=== PATIENT | female | born 1950 | race Caucasian/White ===

== ENCOUNTER 2022-07-25 05:48 | Observation (INO) | payer MEDICARE, OTHER ==
--- NOTE | 2022-07-24 12:19 | HP ---
DATE OF SURGERY: 07/25/2022 HISTORY OF PRESENT ILLNESS: The patient is a 71-year-old female who presents with a history of breast cancer. She has been constipated lately. She has not had a colonoscopy to date. She is currently seeing Dr. Ayon for anemia. PAST MEDICAL HISTORY: Breast cancer, hypertension, anemia, asthma. PAST SURGICAL HISTORY: Mastectomy. ALLERGIES: NKDA. MEDICATIONS: ProAir, carvedilol, lisinopril. FAMILY HISTORY: None reported. SOCIAL HISTORY: Former smoker. REVIEW OF SYSTEMS: CONSTITUTIONAL: Denies fever or chills. CHEST: Denies shortness of breath. CVS: Denies chest pain. ABDOMEN: Denies abdominal pain. PHYSICAL EXAMINATION: GENERAL: No acute distress. CHEST: Nonlabored. No shortness of breath. CVS: Regular rate and rhythm. ABDOMEN: Soft. IMPRESSION: Anemia and screening. PLAN: EGD and colonoscopy with Dr. Cory Shane. As dictated by Desirae Davis NP.
[2022-07-25] MEDS ORDERED: Lactated Ringers 1,000 ML IV SCH (06:30)
[2022-07-25] MEDS ORDERED: DIPRIVAN 200 MG/20 ML IV ONE ×2 (07:13→08:42)
[2022-07-25] MEDS ORDERED: Xylocaine-Mpf 2% 5 Ml Vial ONE (07:48)
[2022-07-25] MEDS ORDERED: GlucaGen 1 MG ONE (08:33)
[2022-07-25] MEDS ORDERED: Xopenex 1.25 MG/0.5 ML UD NEBULE IH ONE (09:10)
--- NOTE | 2022-07-25 10:01 | XRAY ---
Indication: Hypoxia following surgery eared Comparison: None Portable chest hyperinflated with minimal right midlung infiltrate versus atelectasis. No consolidation, large effusion, or pneumothorax. Heart not enlarged with right Port-A-Cath. Bony thorax intact with osteopenia, degenerative changes, and old proximal left humerus fracture.
[2022-07-25] MEDS ORDERED: solu-MEDROL ONE (10:02)
--- NOTE | 2022-07-25 10:42 | OP ---
SURGERY DATE/TIME: 07/25/2022 0812 PREOPERATIVE DIAGNOSIS: Anemia. POSTOPERATIVE DIAGNOSES: 1) A 1.5 inch hiatal hernia. 2) Grade 3 over 4 gastroesophageal reflux disease. 3) Antritis. 4) Anticipated follow up three years. 5) Withdrawal time six minutes. 6) Prep score was excellent. PROCEDURES: 1) EGD with cold biopsy. 2) Colonoscopy complete to cecum with hot polypectomy x2 of 6 and 8 mm at the hepatic flexure and splenic flexure respectively. SURGEON: Cory Shane M.D. ANESTHESIA: MAC. COMPLICATIONS: None. CONDITION: Stable. INDICATION: Anemia. DESCRIPTION OF PROCEDURE: Taken to endoscopy. Left lateral decubitus position. Pharyngoesophageal junction normal. Esophagus normal down to gastroesophageal junction. There was a 1.5 inch hiatal hernia. There was grade 3 over 4 gastroesophageal reflux disease. Fundus and body normal. There was some light hemorrhagic gastritis. The patient was placed on Protonix. Duodenum was normal. Anal digital examination satisfactory. Scope advanced. Two polyps were taken subsequently with hot biopsy forceps. There was no specific site of bleeding however. The patient tolerated the procedure satisfactory. Follow up in three years.
[2022-07-25] MEDS ORDERED: TYLENOL 325 MG PO PRN (11:44)
[2022-07-25] MEDS ORDERED: VENTOLIN COMMON CANISTER IH PRN (11:44)
[2022-07-25] MEDS ORDERED: [UNRECOGNIZED DRUG - OTHER] IV SCH (11:45)
[2022-07-25] MEDS ORDERED: MEDICATION INTERVENTION MC SCH (12:00)
[2022-07-25 12:24] LABS: INFLUENZA A NEGATIVE (NEGATIVE); INFLUENZA B NEGATIVE (NEGATIVE); RESPIRATORY SYNCTIAL VIRUS NEGATIVE (Negative); SARS-CoV-2 Xpert Express NEGATIVE (NEGATIVE)
[2022-07-25] MEDS: Piperacillin/Tazobactam 2.25 GM 2.25 GM in Sodium Chloride 100ML MINI-BAG PLUS 100 ML IV SCH ×2 (12:53→18:31)
[2022-07-25] MEDS: LASIX 20 MG PO SCH (12:58)
[2022-07-25] MEDS: Zestril 5 MG PO SCH (13:00)
[2022-07-25] MEDS: Coreg 3.125 MG PO SCH ×2 (13:00→21:16)
[2022-07-25] MEDS: CLINDAMYCIN-D5W 600 MG/50 ML*** 600 MG/50 ML BAG IV SCH ×2 (14:25→21:16)
[2022-07-25 14:27] LABS: ALBUMIN 3.4 g/dL (3.5-5.0); ALKALINE PHOSPHATASE 65 U/L (38-126); ANION GAP 13.4 MEQ/L (5-15); BLOOD UREA NITROGEN 17 mg/dL (7-17); CHLORIDE 109 mmol/L (98-107); Calcium 8.8 mg/dL (8.4-10.2); Carbon Dioxide 19 mmol/L (22-30); Creatinine 1 0.92 mg/dL (0.52-1.04); EST GLOMERULAR FILTRATION RATE > 60.0 ML/MIN; Glucose 93 mg/dL (74-106); Potassium 3.8 mmol/L (3.5-5.1); SGOT/AST 41 U/L (14-36); SGPT/ALT 25 U/L (0-35); SODIUM 138 mmol/L (137-145); Total Protein 6.5 g/dL (6.3-8.2)
[2022-07-25 14:28] LABS: Absolute Neutrophil Ct (ANC) 5.92 x10^3/uL (1.4-6.9); Basophil (Absolute #) 0.02 x10^3/uL (0-0.4); Eosinophil (Absolute #) 0 x10^3/uL (0-0.5); Hematocrit 29.3 % (35-47); Hemoglobin 9.7 g/dL (12.0-16.0); Lymphocyte (Absolute #) 0.08 x10^3/uL (1.0-4.6); Lymphocytes % 1.3 % (24.0-44.0); Mean Cell Volume 105.4 fL (78-100); Mean Corpuscular Hemoglobin 34.9 pg (26-32); Mean Corpuscular Hgb Concent. 33.1 g/dL (32-36); Monocytes % 4.7 % (0.0-12.0); Neutrophil % 93.5 % (36.0-66.0); Platelet Count 177 x10^3/uL (150-450); Red Blood Count 2.78 x10^6/uL (4.1-5.4); Red Cell Distribution Width 15.2 % (11.5-14.0); White Blood Count 6.3 x10^3/uL (4.0-10.5)
[2022-07-25] MEDS: Sodium Chloride 0.9% 1000 ML 1,000 ML IV SCH (14:28)
[2022-07-25 16:38] LABS: Slide Review 1 YES
[2022-07-25] MEDS: Spiriva 18 Mcg/Cap Inhaler IH SCH (17:52)
[2022-07-26] MEDS: Piperacillin/Tazobactam 2.25 GM 2.25 GM in Sodium Chloride 100ML MINI-BAG PLUS 100 ML IV SCH ×2 (00:15→06:07)
[2022-07-26] MEDS: Sodium Chloride 0.9% 1000 ML 1,000 ML IV SCH (02:51)
[2022-07-26] MEDS: CLINDAMYCIN-D5W 600 MG/50 ML*** 600 MG/50 ML BAG IV SCH (06:44)
[2022-07-26] MEDS: Spiriva 18 Mcg/Cap Inhaler IH SCH (07:26)
[2022-07-26 09:03] LABS: Hematocrit 28.4 % (35-47); Hemoglobin 9.1 g/dL (12.0-16.0); Mean Cell Volume 106.8 fL (78-100); Mean Corpuscular Hemoglobin 34.2 pg (26-32); Mean Platelet Volume 10.8 fL (7.5-11.0); Platelet Count 163 x10^3/uL (150-450); Red Blood Count 2.66 x10^6/uL (4.1-5.4); Red Cell Distribution Width 14.8 % (11.5-14.0); White Blood Count 7.6 x10^3/uL (4.0-10.5)
[2022-07-26 09:09] LABS: ANION GAP 10.4 MEQ/L (5-15); Calcium 8.6 mg/dL (8.4-10.2); Creatinine 1 1.25 mg/dL (0.52-1.04); EST GLOMERULAR FILTRATION RATE 44.7 ML/MIN; Potassium 3.7 mmol/L (3.5-5.1)
[2022-07-26] MEDS: Coreg 3.125 MG PO SCH (09:34)
[2022-07-26] MEDS: Zestril 5 MG PO SCH (09:34)
[2022-07-26] MEDS: LASIX 20 MG PO SCH (09:34)
--- NOTE | 2022-07-26 09:41 | XRAY ---
Indication: Aspiration pneumonia. Comparison: July 25, 2022 Portable chest again hyperinflated with grossly stable minimal right midlung infiltrate versus atelectasis. New small right mid to upper lung nodular opacity previously obscured by right Port-A-Cath and tip right 2nd rib. CT chest may yield further information. Remaining heart and lungs unremarkable.
[2022-07-26 11:22] VITALS: BP 102/50; PULSE 62; O2SAT 97
== END 2022-07-26 12:05 | disposition home or self-care (01) ==
LOC: SDC 05:48 → MED SURG 11:06
PROVIDERS: ADMIT Family Medicine; ATTEND Family Medicine
DX: J95.4 Chemical pneumonitis due to anesthesia (principal); K21.9 Gastro-esophageal reflux disease without esophagitis; D64.9 Anemia, unspecified; K44.9 Diaphragmatic hernia without obstruction or gangrene; K29.50 Unspecified chronic gastritis without bleeding; K63.5 Polyp of colon; Z20.828 Contact with and (suspected) exposure to other viral communicable diseases
CPT/HCPCS: 00813; 0241U; 36415; 43239; 45384; 71045; 80048; 80053; 85025; 85027; 93005; 94640; 94760; 99100; G0378; J1610; J2543; J2704; J2930; A9270-GY